=== PATIENT | male | born 1975 | race Caucasian/White ===

== ENCOUNTER 2016-07-13 18:09 | Emergency (ER) | payer SELFPAY ==
--- NOTE | 2016-07-13 18:56 | ED ORDER SUMMARY ---
..... Patient: JOSE CRUZ OrderSheet [facility] VisitID: [id number] [address] [place] [address] 40y, M Registration Date/Time: 07/13/2016 ORDER SHEET Weight: 86.1 kg (estimated) Allergies: No Known Drug Allergy GENERAL ORDERS: MEDICATION ORDERS: Pen-Vee K PO 500 mg (NOW) (18:32 07/13/2016 Matheus RODAS) (18:59 Gaetano Dunn) IV FLUIDS: ORDER SHEET NOTES: [Electronically signed by Karson Moyer R.N. (19:11 07/13/2016)] [Electronically signed by Joshua Crain DO (23:20 07/13/2016)] [Electronically locked/signed by Karson Moyer R.N. (19:11 07/13/2016)]
--- NOTE | 2016-07-13 18:56 | ED CLINICAL REPORT ---
Clinical Report - Physicians/Mid Levels [facility] [address] [place] [address] 07/13/2016 18:11 Patient: JOSE CRUZ Time Seen: 18:15. Arrived- By private vehicle. Historian- patient. HISTORY OF PRESENT ILLNESS Chief Complaint: DENTAL PAIN. This started about 3 days ago and is still present. It was gradual in onset and has been waxing/waning. Pain described as moderate. The patient has had moderate toothache involving a single tooth (left upper molar). Similar symptoms previously: Recent medical care: Not recently seen/assessed. REVIEW OF SYSTEMS No fever, cough, difficulty breathing, nausea or diarrhea. No abdominal pain, difficulty with urination, headache, joint pain or skin rash. No vomiting. PAST HISTORY Hypertension. Hypertension. Type II diabetes mellitus. Medications: None. Allergies: No Known Drug Allergy. SOCIAL HISTORY Smoker- current status unknown. No alcohol use or drug use. ADDITIONAL NOTES The nursing notes have been reviewed. PHYSICAL EXAM Vital Signs: 07/13/2016 18:14 BP: 183/105. HR: 73. RR: 14. O2 saturation: 100%. Temp: 98.2 F. Appearance: Alert. No acute distress. Head: Normal external inspection. Eyes: Pupils equal, round and reactive to light. Conjunctivae and eyelids normal. ENT: Dental decay. Moderate dental tenderness of multiple teeth with gingival tenderness (upper left first molar and second molar). Pharynx normal. Lips normal. Uvula midline. No trismus. Neck: Normal inspection. Trachea midline. No adenopathy. Neck supple. CVS: Normal heart rate and rhythm. Heart sounds normal. Pulses normal. Respiratory: No respiratory distress. Breath sounds normal. Abdomen: Soft and nontender. No organomegaly. Skin: Normal skin color. Normal skin turgor. Extremities: Extremities exhibit normal ROM. Extremities nontender. Neuro: Oriented X 3. No motor deficit. LABS, X-RAYS, AND EKG Bedside Tests: Glucose: moderate hyperglycemia - 380 (performed at bedside). Pulse Oximetry: 07/13/2016 18:14 O2 saturation: 100%. (FIO2 - room air). Interpretation: normal. PROGRESS AND PROCEDURES Course of Care: Pen V 500 mg PO. Pt is known diabetic, but he has not been compliant with his medications (for DM and HTN). No kidney disease. No systemic symptoms / fever. Nothing evident to I&D now. I will resume metformin and pt will monitor his blood sugar at home and follow up closely with his PCP and dentist at [facility] or [facility] and/or return to the ED for new or worsening symptoms or any concerns. Patient/family counseled. Disposition: Discharged. Condition: stable and improved. CLINICAL IMPRESSION Dental caries (localized) Chronic, poorly controlled type 2 diabetes with hyperglycemia. No coma. Essential hypertension. INSTRUCTIONS Do not work for three days. Rest. Drink plenty of fluids. Do not smoke. Seek medical help to quit smoking. No alcohol. Warnings: Further evaluation is necessary. It is very important to follow up with a physician. SEDATIVE MEDICATION: You were given sedative medication during your visit. Do not drive or operate dangerous machinery. CONTROLLED SUBSTANCE WARNINGS. GENERAL WARNINGS: Return or contact your physician immediately if your condition worsens or changes unexpectedly, if not improving as expected, or if other problems arise. Prescription Medications: Penicillin V 500mg: take 1 tab orally every 6 hours for 10 days. Dispense forty (40). No refill Metformin 500 mg: take 1 orally every 12 hours. Dispense five (5). No refills. OTC Medications: Acetaminophen (available over the counter): take according to label instructions. Motrin (available over the counter): take according to label instructions. Follow-up: Follow up with a dentist and an oral surgeon PLEASE SEE THE DENTAL REFERRAL LIST. Call for the next available appointment. Screening today revealed the patient's blood pressure to be in the hypertensive range. The patient should follow up with a primary care provider for blood pressure management. Follow-up with: [facility], Family [facility], , [address] [place] [address] Follow up in two days. Follow-up with: [facility], , , [address] [place] [address], , Bharat, ; [facility], , , [address], [place] [phone] Follow up in two days. (Electronically signed by Joshua Crain DO 07/13/2016 23:20)
--- NOTE | 2016-07-13 18:56 | ED NURSING NOTES ---
Clinical Report - Nurses [facility] [address] [place] [address] 07/13/2016 18:11 Patient: JOSE CRUZ TRIAGE Triage time 18:16. Acuity: LEVEL 4. Chief Complaint: RIGHT UPPER TOOTHACHE. --18:23 Karson Moyer R.N. 18:14 07/13/16. BP: 183/105. HR: 73. RR: 14. O2 saturation: 100%. Temp: 98.2 F. Pain level now 12/24. --18:23 Karson Moyer R.N. Weight: 86.1 kg estimated. Height/Length: 67 inches Estimated. BMI: 29.8. --18:22 Karson Moyer R.N. Medications None. --18:20 Karson Moyer R.N. Allergies No Known Drug Allergy. --18:21 Karson Moyer R.N. History Arrived by private vehicle. Historian: patient. Accompanied by friend. ( Pt is slurring his words and appears very sleepy. The friend stated the pt has not been sleeping well due to the dental pain. Dental pain has been going on for 2 months. Pt is able to answer questions, but is very drowsy.). 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 SOCIAL HX: Current every day heavy tobacco smoker (cigarette)- 1 pack per day (1 /2). No alcohol use or drug use. --18:23 Karson Moyer R.N. PROBLEMS: Hypertension. Diabetes Mellitus. --18:22 Karson Moyer R.N. Interventions ID band on patient. To treatment room. --18:23 Karson Moyer R.N. PHYSICAL ASSESSMENT ( Pt appears very drowsy and slurred speech.). GENERAL / NEURO / PSYCH: Oriented X 4. Appears in no acute distress. The patient is disoriented to time. HEENT: Pupils equal, round and reactive to light. Pharynx within normal limits. Voice within normal limits. Mouth within normal limits upon inspection. No dental injury noted. ( Upper left side is hurting.). Mucous membranes are pink. RESPIRATORY: Respirations not labored. CVS: Capillary refill less than 2 seconds. SKIN: Skin is warm and dry. Normal skin turgor. --18:24 Karson Moyer R.N. NURSING PROGRESS NOTES Two patient identifiers checked. Call light placed in reach. Side rails up. Bed placed in lowest position. Brakes of bed on. --18:24 Karson Moyer R.N. Point of care testing: performed by tech. Glucose: 380. Result shown to the RN. Orders were not received. --18:29 Karson Moyer R.N. 18:59 07/13/2016 PEN-VEE K (Penicillin V Potassium) PO 500 mg given. Allergies verified and confirmed 5 rights. --18:59 Karson Moyer R.N. DISPOSITION / DISCHARGE Departure time: 19:11. Condition at departure: improved. ( Pt was more awake and able to ambulate without assistance to the lobby. GF was given the paperwork. Pt was given the dental list and was told he needs to follow up with a PCP and was given 3 referrals for a pcp. Pt was informed the urgent need to follow up for his diabetes.). Reviewed medication(s) side effects, precautions, dosing and course information. Prescription(s) given to the patient (metformen antiboitic). Patient verbalized understanding. Written instructions provided in [place]ese. The patient was discharged by the physician. He was discharged home and accompanied by burial vault deliverer and installer. He left the Emergency Department ambulatory and via private vehicle. Holistic Nutritionist driving. --19:11 Karson Moyer R.N. Locked/Released at 07/13/2016 19:11 by Karson Moyer R.N.
--- NOTE | 2016-07-13 18:56 | ED NURSING NOTES ---
Clinical Report - Nurses [facility] [address] [place] [address] 07/13/2016 18:11 Patient: JOSE CRUZ TRIAGE Triage time 18:16. Acuity: LEVEL 4. Chief Complaint: RIGHT UPPER TOOTHACHE. --18:23 Karson Moyer R.N. 18:14 07/13/16. BP: 183/105. HR: 73. RR: 14. O2 saturation: 100%. Temp: 98.2 F. Pain level now 12/24. --18:23 Karson Moyer R.N. Weight: 86.1 kg estimated. Height/Length: 67 inches Estimated. BMI: 29.8. --18:22 Karson Moyer R.N. Medications None. --18:20 Karson Moyer R.N. Allergies No Known Drug Allergy. --18:21 Karson Moyer R.N. History Arrived by private vehicle. Historian: patient. Accompanied by friend. ( Pt is slurring his words and appears very sleepy. The friend stated the pt has not been sleeping well due to the dental pain. Dental pain has been going on for 2 months. Pt is able to answer questions, but is very drowsy.). 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 SOCIAL HX: Current every day heavy tobacco smoker (cigarette)- 1 pack per day (1 /2). No alcohol use or drug use. --18:23 Karson Moyer R.N. PROBLEMS: Hypertension. Diabetes Mellitus. --18:22 Karson Moyer R.N. Interventions ID band on patient. To treatment room. --18:23 Karson Moyer R.N. PHYSICAL ASSESSMENT ( Pt appears very drowsy and slurred speech.). GENERAL / NEURO / PSYCH: Oriented X 4. Appears in no acute distress. The patient is disoriented to time. HEENT: Pupils equal, round and reactive to light. Pharynx within normal limits. Voice within normal limits. Mouth within normal limits upon inspection. No dental injury noted. ( Upper left side is hurting.). Mucous membranes are pink. RESPIRATORY: Respirations not labored. CVS: Capillary refill less than 2 seconds. SKIN: Skin is warm and dry. Normal skin turgor. --18:24 Karson Moyer R.N. NURSING PROGRESS NOTES Two patient identifiers checked. Call light placed in reach. Side rails up. Bed placed in lowest position. Brakes of bed on. --18:24 Karson Moyer R.N. Point of care testing: performed by tech. Glucose: 380. Result shown to the RN. Orders were not received. --18:29 Karson Moyer R.N. 18:59 07/13/2016 PEN-VEE K (Penicillin V Potassium) PO 500 mg given. Allergies verified and confirmed 5 rights. --18:59 Karson Moyer R.N. DISPOSITION / DISCHARGE Departure time: 19:11. Condition at departure: improved. ( Pt was more awake and able to ambulate without assistance to the lobby. GF was given the paperwork. Pt was given the dental list and was told he needs to follow up with a PCP and was given 3 referrals for a pcp. Pt was informed the urgent need to follow up for his diabetes.). Reviewed medication(s) side effects, precautions, dosing and course information. Prescription(s) given to the patient (metformen antiboitic). Patient verbalized understanding. Written instructions provided in Sri [place]an. The patient was discharged by the physician. He was discharged home and accompanied by site coordinator. He left the Emergency Department ambulatory and via private vehicle. Circulation Tender driving. --19:11 Karson Moyer R.N. Locked/Released at 07/13/2016 19:11 by Karson Moyer R.N.
--- NOTE | 2016-07-13 18:56 | ED ORDER SUMMARY ---
..... Patient: JOSE CRUZ OrderSheet [facility] VisitID: [id number] [address] [place] [address] 40y, M Registration Date/Time: 07/13/2016 ORDER SHEET Weight: 86.1 kg (estimated) Allergies: No Known Drug Allergy GENERAL ORDERS: MEDICATION ORDERS: Pen-Vee K PO 500 mg (NOW) (18:32 07/13/2016 Matheus RODAS) (18:59 Gaetano Dunn) IV FLUIDS: ORDER SHEET NOTES: [Electronically signed by Karson Moyer R.N. (19:11 07/13/2016)] [Electronically signed by Joshua Crain DO (23:20 07/13/2016)] [Electronically locked/signed by Karson Moyer R.N. (19:11 07/13/2016)]
--- NOTE | 2016-07-13 18:56 | ED CLINICAL REPORT ---
Clinical Report - Physicians/Mid Levels [facility] [address] [place] [place] [address] 07/13/2016 18:11 Patient: JOSE CRUZ Time Seen: 18:15. Arrived- By private vehicle. Historian- patient. HISTORY OF PRESENT ILLNESS Chief Complaint: DENTAL PAIN. This started about 3 days ago and is still present. It was gradual in onset and has been waxing/waning. Pain described as moderate. The patient has had moderate toothache involving a single tooth (left upper molar). Similar symptoms previously: Recent medical care: Not recently seen/assessed. REVIEW OF SYSTEMS No fever, cough, difficulty breathing, nausea or diarrhea. No abdominal pain, difficulty with urination, headache, joint pain or skin rash. No vomiting. PAST HISTORY Hypertension. Hypertension. Type II diabetes mellitus. Medications: None. Allergies: No Known Drug Allergy. SOCIAL HISTORY Smoker- current status unknown. No alcohol use or drug use. ADDITIONAL NOTES The nursing notes have been reviewed. PHYSICAL EXAM Vital Signs: 07/13/2016 18:14 BP: 183/105. HR: 73. RR: 14. O2 saturation: 100%. Temp: 98.2 F. Appearance: Alert. No acute distress. Head: Normal external inspection. Eyes: Pupils equal, round and reactive to light. Conjunctivae and eyelids normal. ENT: Dental decay. Moderate dental tenderness of multiple teeth with gingival tenderness (upper left first molar and second molar). Pharynx normal. Lips normal. Uvula midline. No trismus. Neck: Normal inspection. Trachea midline. No adenopathy. Neck supple. CVS: Normal heart rate and rhythm. Heart sounds normal. Pulses normal. Respiratory: No respiratory distress. Breath sounds normal. Abdomen: Soft and nontender. No organomegaly. Skin: Normal skin color. Normal skin turgor. Extremities: Extremities exhibit normal ROM. Extremities nontender. Neuro: Oriented X 3. No motor deficit. LABS, X-RAYS, AND EKG Bedside Tests: Glucose: moderate hyperglycemia - 380 (performed at bedside). Pulse Oximetry: 07/13/2016 18:14 O2 saturation: 100%. (FIO2 - room air). Interpretation: normal. PROGRESS AND PROCEDURES Course of Care: Pen V 500 mg PO. Pt is known diabetic, but he has not been compliant with his medications (for DM and HTN). No kidney disease. No systemic symptoms / fever. Nothing evident to I&D now. I will resume metformin and pt will monitor his blood sugar at home and follow up closely with his PCP and dentist at [facility] or [facility] and/or return to the ED for new or worsening symptoms or any concerns. Patient/family counseled. Disposition: Discharged. Condition: stable and improved. CLINICAL IMPRESSION Dental caries (localized) Chronic, poorly controlled type 2 diabetes with hyperglycemia. No coma. Essential hypertension. INSTRUCTIONS Do not work for three days. Rest. Drink plenty of fluids. Do not smoke. Seek medical help to quit smoking. No alcohol. Warnings: Further evaluation is necessary. It is very important to follow up with a physician. SEDATIVE MEDICATION: You were given sedative medication during your visit. Do not drive or operate dangerous machinery. CONTROLLED SUBSTANCE WARNINGS. GENERAL WARNINGS: Return or contact your physician immediately if your condition worsens or changes unexpectedly, if not improving as expected, or if other problems arise. Prescription Medications: Penicillin V 500mg: take 1 tab orally every 6 hours for 10 days. Dispense forty (40). No refill Metformin 500 mg: take 1 orally every 12 hours. Dispense five (5). No refills. OTC Medications: Acetaminophen (available over the counter): take according to label instructions. Motrin (available over the counter): take according to label instructions. Follow-up: Follow up with a dentist and an oral surgeon PLEASE SEE THE DENTAL REFERRAL LIST. Call for the next available appointment. Screening today revealed the patient's blood pressure to be in the hypertensive range. The patient should follow up with a primary care provider for blood pressure management. Follow-up with: [facility], Family [facility], , [address] [place] [address] Follow up in two days. Follow-up with: [facility], , , [address] [place] [address], , Bharat, ; [facility], , , [address], [place] [phone] Follow up in two days. (Electronically signed by Joshua Crain DO 07/13/2016 23:20)
--- NOTE | 2016-07-13 23:20 | ED MED RECONCILIATION SUMMARY ---
Patient: JOSE CRUZ Medication Reconciliation Report [facility] VisitID: [id number] [place] [address] 40y, M Registration Date/Time: 07/13/2016 Weight: 86.1 kg Height/Length: 67 in. BMI: 29.8 ALLERGIES: No Known Drug Allergy The patient's Home Medications are listed below: NONE. The source(s) of the original Home Medication information: Not obtained. The following Medications were given to the patient in the Emergency Department: PEN-VEE K [PO] PO 500 mg, administered: 07/13/2016 6:59:00 PM The following Medications were prescribed to the patient: Acetaminophen (available over the counter): take according to label instructions. -- Joshua Crain DO Motrin (available over the counter): take according to label instructions. -- Joshua Crain DO Penicillin V 500mg: take 1 tab orally every 6 hours for 10 days. Dispense forty (40). No refill -- Joshua Crain DO Metformin 500 mg: take 1 orally every 12 hours. Dispense five (5). No refills. -- Joshua Crain DO
--- NOTE | 2016-07-13 23:20 | ED MAR SUMMARY ---
..... Medication Administration Record [facility] [address] [place] [address] Patient: JOSE CRUZ Visit ID: [id number] 40y, M Weight: 86.1 kg Height/Length: 67 in BMI: 29.8 ALLERGIES: No Known Drug Allergy Given 18:59 07/13/2016 Karson Moyer R.N. Medication Administered: PEN-VEE K [PO] (PENICILLIN V POTASSIUM), Dose: 500 mg PO. Medication Ordered: Pen-Vee K PO 500 mg (NOW).
--- NOTE | 2016-07-13 23:20 | ED DISCHARGE INSTRUCTIONS ---
Patient: JOSE CRUZ General Instructions [facility] VisitID: [id number] [address] [place] [address] 40y, M Registration Date/Time: 07/13/2016 Dental caries (localized) Chronic, poorly controlled type 2 diabetes with hyperglycemia. No coma. Essential hypertension. INSTRUCTIONS Do not work for three days. Rest. Drink plenty of fluids. Do not smoke. Seek medical help to quit smoking. No alcohol. Warnings: Further evaluation is necessary. It is very important to follow up with a physician. SEDATIVE MEDICATION: You were given sedative medication during your visit. Do not drive or operate dangerous machinery. CONTROLLED SUBSTANCE WARNINGS. GENERAL WARNINGS: Return or contact your physician immediately if your condition worsens or changes unexpectedly, if not improving as expected, or if other problems arise. Prescription Medications: Penicillin V 500mg: take 1 tab orally every 6 hours for 10 days. Dispense forty (40). No refill Metformin 500 mg: take 1 orally every 12 hours. Dispense five (5). No refills. OTC Medications: Acetaminophen (available over the counter): take according to label instructions. Motrin (available over the counter): take according to label instructions. Follow-up: Follow up with a dentist and an oral surgeon PLEASE SEE THE DENTAL REFERRAL LIST. Call for the next available appointment. Screening today revealed the patient's blood pressure to be in the hypertensive range. The patient should follow up with a primary care provider for blood pressure management. Follow-up with: [facility], [facility], , [address] [place] [address] Follow up in two days. Follow-up with: [facility], , , [address] [place] [address], , [place], ; [facility], , , [address], [facility], [address] Follow up in two days. ADDITIONAL INFORMATION Dental Cavity A dental cavity is a pit or crater in the enamel surface of the tooth. This exposes the sensitive inner layer of the tooth and causes pain. If untreated, the cavity will get bigger and may cause an infection or abscess in the root of the tooth. An infection in the tooth is a much more serious problem and may require a root canal or removal of the entire tooth. The tooth pain may be made worse by drinking hot or cold fluids. It may spread from the tooth to the ear or jaw on the same side. Home Care: Avoid hot and cold foods, and liquids since your tooth may be sensitive to temperature changes. If your tooth is chipped or cracked, or if there is a large open cavity, apply OIL OF CLOVES (available rzrq-mak-tnhnklo in drug stores) directly to the tooth to reduce pain. Some pharmacies carry an wsmr-uhs-iogdcrl "toothache kit." This contains oil of cloves and a paste, which can be applied over the exposed tooth to decrease sensitivity. An ice pack on your jaw over the sore area may help to reduce pain. You may use acetaminophen (Tylenol) or ibuprofen (Motrin, Advil) to control pain, unless another pain medicine was prescribed. [ NOTE: If you have liver disease or ever had a stomach ulcer, talk with your doctor before using these medicines.] If you have signs of an infection, an antibiotic will be given. Take it as directed. Follow-Up with your dentist as directed. Although your pain may go away with the treatment given, only a dentist can fully evaluate and treat this problem to prevent further tooth damage. Get Prompt Medical Attention if any of the following occur: Redness or swelling of the face Pain worsens or spreads to the neck Fever over 100.5 F (38C) Unusual drowsiness; headache or stiff neck; weakness or fainting Pus drains from the tooth or gum Difficulty swallowing or breathing Dental Pain A crack or cavity in the tooth, which exposes the sensitive inner area of the tooth can cause tooth pain. An infection in the gum or the root of the tooth can cause pain and swelling. The pain is often made worse by drinking hot or cold fluids, or biting on hard foods. Pain may spread from the tooth to the ear or jaw on the same side. Home Care: Avoid hot and cold foods and liquids since your tooth may be sensitive to temperature changes. If your tooth is chipped or cracked, or if there is a large open cavity, apply OIL OF CLOVES (available zbno-ldz-mwvtltg in drug stores) directly to the tooth to reduce pain. Some pharmacies carry an hper-gvg-oxballo "toothache kit." This contains a paste, which can be applied over the exposed tooth to decrease sensitivity. A cold pack on your jaw over the sore area may help reduce pain. You may use acetaminophen (Tylenol) or ibuprofen (Motrin, Advil) to control pain, unless another medicine was prescribed. [ NOTE: If you have chronic liver or kidney disease or ever had a stomach ulcer or GI bleeding, talk with your doctor before using these medicines.] If you have signs of an infection, an antibiotic will be given. Take it as directed. Follow-Up as directed with a dentist. Your pain may go away with the treatment given. However, only a dentist can fully evaluate and treat the cause and prevent the pain from coming back again. TOOTHACHE IS A SIGN OF DISEASE IN YOUR TOOTH AND SHOULD BE EXAMINED AND TREATED BY A DENTIST. Get Prompt Medical Attention if any of the following occur: Your face becomes swollen or red Pain worsens or spreads to the neck Fever over 100.4 F (38.0 C) Unusual drowsiness; headache or stiff neck; weakness or fainting Pus drains from the tooth Difficulty swallowing or breathing Diabetes with High Blood Sugar You have been treated for high blood sugar (hyperglycemia). This may be becauseof an infection or other illness;eating too many sweets or starches ; not taking enough insulin. Home care High blood sugar may cause symptoms that you can learn to recognize, such as these: If you feel like your blood sugar may be too high, measure it using a blood or urine test. If it is above your usual range, use the "sliding scale"rRegular insulin dose your doctor gave you to correct this. If no "sliding scale" orders were given, contact your doctor for further advice. If your blood sugar is over 300, and you can't reach your doctor, go to the hospital emergency room. Monitor and write down your blood sugars - and insulin dose, if you take insulin - atleast twice a day. Do this before breakfast and before dinner. Do this for the next 3 to 5 days. Follow-up care Follow up with your health care provderduring the next week to review your blood sugar records. You will find out if you need to adjust your dose of insulin or other medicine for blood sugar. When to seek medical care Get prompt medical attention if either of these occur: High blood sugar.Symptoms are frequent urination, feeling dizzy, thirst, headache, nausea or vomiting, abdominal pain, and drowsiness or loss of consciousness. Low blood sugar. Symptoms are fatigue, headache, shakes, excess sweating, hunger, anxiety, reduced vision, drowsiness, weakness, confusion or loss of consciousness, and seizure. High Blood Pressure --Established High Blood Pressure (Hypertension) is a chronic disease. The cause is unknown in most cases. It can usually be controlled with lifestyle changes and/or medicines. Symptoms of high blood pressure may include headache, dizziness, visual changes, chest pain and shortness of breath. Sometimes it causes no symptoms at all. However, even if there are no symptoms, untreated high blood pressure increases the risk of heart attack, also known as acute myocardial infarction, or AMI, and stroke. It is a serious health risk and should not be ignored. A normal blood pressure is 120/80 or less. The first (top) number is the "systolic" pressure. The second (bottom) number is the "diastolic" pressure. Hypertension exists when either the top number is 140 or higher, OR the bottom number is 90 or higher on repeated measurements. Home Care: All patients with high blood pressure should do the following to lower their pressure. If you are on medicines, then these methods may reduce or eliminate your need for medicines in the future. Begin a weight loss program if you are overweight. Reduce your salt intake. Avoid high salt foods (olives, pickles, smoked meats, salted potato chips, etc.). Do not add salt to your food at the table. Use only small amounts of salt when cooking. Begin an exercise program. Discuss with your doctor what type of exercise program would be best for you. It doesn't have to be difficult. Even brisk walking for 20 minutes three times a week is a good form of exercise. Avoid medicines which contain heart stimulants. This includes many cold and sinus decongestant pills and sprays as well as diet pills. Check the warnings about hypertension on the label. Stimulants such as amphetamine or cocaine could be lethal for someone with hypertension. Never take these. Limit your caffeine intake or switch to caffeine-free products. Stop smoking. If you are a long-time smoker, this can be hard. Enroll in a stop-smoking program to improve your chance of success. Learning how to handle stress better is an important part of any program to lower blood pressure. Learn about relaxation methods such as meditation, yoga or biofeedback. If medicines were prescribed, take them exactly as directed. Missing doses may cause your blood pressure get out of control. Consider buying an automatic blood pressure machine (available at most pharmacies). Use this to monitor your blood pressure at home and report the results to your doctor. Follow Up: Regular visits to your own physician for blood pressure checks and medicine adjustment is an important part of your care. Make a follow-up appointment as directed by our staff. Get Prompt Medical Attention if any of the following occur: Chest pain or shortness of breath Severe headache Throbbing or rushing sound in the ears Nosebleed Sudden severe abdominal pain Extreme drowsiness, confusion or fainting Dizziness or vertigo (dizziness with spinning sensation) Weakness of an arm or leg or one side of the face Difficulty with speech or vision How To Quit Smoking Smoking is one of the hardest habits to break. About half of all those who have ever smoked have been able to quit, and most of those (about 70%) who still smoke want to quit. Here are some of the best ways to stop smoking. Keep Trying: It takes most smokers about 8 tries before they are finally able to fully quit. So, the more often you try and fail, the better your chance of quitting the next time! So, don't give up! Go Cold [place]: Most ex-smokers quit cold turkey. Trying to cut back gradually doesn't seem to work as well, perhaps because it continues the smoking habit. Also, it is possible to fool yourself by inhaling more while smoking fewer cigarettes. This results in the same amount of nicotine in your body! Get Support: Support programs can make an important difference, especially for the heavy smoker. These groups offer lectures, methods to change your behavior and peer support. Call the free national Quitline for more information. 040-ZYET-EVC (788-981-2454). Low-cost or free programs are offered by many hospitals, local chapters of the [place] [employer] (177-685-9981) and the [place] [employer] (776-292-4119). Support at home is important too. Non-smokers can help by offering praise and encouragement. If the smoker fails to quit, encourage them to try again! Hyai-Eas-Bvxkaqo Medicines: For those who can't quit on their own, Nicotine Replacement Therapy (NRT) may make quitting much easier. Certain aids such as the nicotine patch, gum and lozenge are available without a prescription. However, it is best to use these under the guidance of your doctor. The skin patch provides a steady supply of nicotine to the body. Nicotine gum and lozenge gives temporary bursts of low levels of nicotine. Both methods take the edge off the craving for cigarettes. WARNING: If you feel symptoms of nicotine overdose, such as nausea, vomiting, dizziness, weakness, or fast heartbeat, stop using these and see your doctor. Prescription Medicines: After evaluating your smoking patterns and prior attempts at quitting, your doctor may offer a prescription medicine such as bupropion (Zyban, Wellbutrin), varenicline (Chantix, Champix), a niocotine inhaler or nasal spray. Each has its unique advantage and side effects which your doctor can review with you. Health Benefits Of Quitting: The benefits of quitting start right away and keep improving the longer you go without smokin minutes: blood pressure and pulse return to normal 8 hours: oxygen levels return to normal 2 days: ability to smell and taste begins to improve as damaged nerves start to regrow 2-3 weeks: circulation and lung function improves 1-9 months: decreased cough, congestion and shortness of breath; less tired 1 year: risk of heart attack decreases by half 5 years: risk of lung cancer decreases by half; risk of stroke becomes the same as a non-smoker For information about how to quit smoking, visit the following links: National [employer] , Clearing the Air, Quit Smoking Today - an online booklet. http://www.smokefree.gov/pubs/clearing_the_air.pdf Smokefree.gov http://smokefree.gov/ QuitNet http://www.quitnet.com/ Penicillin V Potassium Oral tablet What is this medicine? PENICILLIN V (pen i SILL in V) is a penicillin antibiotic. It is used to treat certain kinds of bacterial infections. It will not work for colds, flu, or other viral infections. How should I use this medicine? Take this medicine by mouth with a full glass of water. Follow the directions on the prescription label. Take your medicine at regular intervals. Do not take your medicine more often than directed. Take all of your medicine as directed even if you think your are better. Do not skip doses or stop your medicine early. Talk to your inspector bullet slugs regarding the use of this medicine in children. While this drug may be prescribed for selected conditions, precautions do apply. What side effects may I notice from receiving this medicine? Side effects that you should report to your doctor or health manager respiratory care as soon as possible: allergic reactions like skin rash or hives, swelling of the face, lips, or tongue breathing problems fever new symptoms of infection redness, blistering, peeling or loosening of the skin, including inside the mouth unusually weak or tired Side effects that usually do not require medical attention (report to your doctor or health manager respiratory care if they continue or are bothersome): diarrhea headache nausea, vomiting sore mouth or tongue stomach upset What may interact with this medicine? control pills methotrexate other antibiotics probenecid some vaccines What if I miss a dose? If you miss a dose, take it as soon as you can. If it is almost time for your next dose, take only that dose. Do not take double or extra doses. Where should I keep my medicine? Keep out of the reach of children. Store at room temperature between 15 and 30 degrees C (59 and 86 degrees F). Keep container tightly closed. Throw away any unused medicine after the expiration date. What should I tell my health care provider before I take this medicine? They need to know if you have any of these conditions: asthma bowel disease, like colitis eczema kidney disease an unusual or allergic reaction to penicillin, cephalosporins, other antibiotics or medicines, foods, tartrazine or other dyes, or preservatives or trying to get breast-feeding What should I watch for while using this medicine? Tell your doctor or health manager respiratory care if your symptoms do not improve. Do not treat diarrhea with over the counter products. Contact your doctor if you have diarrhea that lasts more than 2 days or if it is severe and watery. If you have diabetes, you may get a false-positive result for sugar in your urine. Check with your doctor or health manager respiratory care. control pills may not work properly while you are taking this medicine. Talk to your doctor about using an extra method of control. Acetaminophen Oral tablet What is this medicine? ACETAMINOPHEN (a set a STEVEN valentino fen) is a pain reliever. It is used to treat mild pain and fever. How should I use this medicine? Take this medicine by mouth with a glass of water. Follow the directions on the package or prescription label. Take your medicine at regular intervals. Do not take your medicine more often than directed. Talk to your inspector bullet slugs regarding the use of this medicine in children. While this drug may be prescribed for children as young as 6 years of age for selected conditions, precautions do apply. What side effects may I notice from receiving this medicine? Side effects that you should report to your doctor or health manager respiratory care as soon as possible: allergic reactions like skin rash, itching or hives, swelling of the face, lips, or tongue breathing problems fever or sore throat redness, blistering, peeling or loosening of the skin, including inside the mouth trouble passing urine or change in the amount of urine unusual bleeding or bruising unusually weak or tired yellowing of the eyes or skin Side effects that usually do not require medical attention (report to your doctor or health manager respiratory care if they continue or are bothersome): headache nausea, stomach upset What may interact with this medicine? alcohol imatinib isoniazid other medicines with acetaminophen What if I miss a dose? If you miss a dose, take it as soon as you can. If it is almost time for your next dose, take only that dose. Do not take double or extra doses. Where should I keep my medicine? Keep out of reach of children. Store at room temperature between 20 and 25 degrees C (68 and 77 degrees F). Protect from moisture and heat. Throw away any unused medicine after the expiration date. What should I tell my health care provider before I take this medicine? They need to know if you have any of these conditions: if you frequently drink alcohol containing drinks liver disease an unusual or allergic reaction to acetaminophen, other medicines, foods, dyes or preservatives or trying to get breast-feeding What should I watch for while using this medicine? Tell your doctor or health manager respiratory care if the pain lasts more than 10 days (5 days for children), if it gets worse, or if there is a new or different kind of pain. Also, check with your doctor if a fever lasts for more than 3 days. Do not take other medicines that contain acetaminophen with this medicine. Always read labels carefully. If you have questions, ask your doctor or pharmacist. If you take too much acetaminophen get medical help right away. Too much acetaminophen can be very dangerous and cause liver damage. Even if you do not have symptoms, it is important to get help right away. Ibuprofen Oral tablet What is this medicine? IBUPROFEN (eye BYOO proe fen) is a non-steroidal anti-inflammatory drug (NSAID). It is used for dental pain, fever, headaches or migraines, osteoarthritis, rheumatoid arthritis, or painful monthly periods. It can also relieve minor aches and pains caused by a cold, flu, or sore throat. How should I use this medicine? Take this medicine by mouth with a glass of water. Follow the directions on the prescription label. Take this medicine with food if your stomach gets upset. Try to not lie down for at least 10 minutes after you take the medicine. Take your medicine at regular intervals. Do not take your medicine more often than directed. A special MedGuide will be given to you by the pharmacist with each prescription and refill. Be sure to read this information carefully each time. Talk to your inspector bullet slugs regarding the use of this medicine in children. Special care may be needed. What side effects may I notice from receiving this medicine? Side effects that you should report to your doctor or health manager respiratory care as soon as possible: allergic reactions like skin rash, itching or hives, swelling of the face, lips, or tongue black or bloody stools, blood in the urine or in vomit breathing problems changes in vision chest pain general ill feeling or flu-like symptoms nausea or vomiting redness, blistering, peeling or loosening of the skin, including inside the mouth slurred speech or weakness on one side of the body stomach pain unexplained weight gain or swelling unusually weak or tired yellowing of eyes or skin Side effects that usually do not require medical attention (report to your doctor or health manager respiratory care if they continue or are bothersome): constipation or diarrhea dizziness gas or heartburn stomach upset What may interact with this medicine? Do not take this medicine with any of the following medications: cidofovir ketorolac methotrexate pemetrexed This medicine may also interact with the following medications: alcohol aspirin diuretics lithium other drugs for inflammation like prednisone warfarin What if I miss a dose? If you miss a dose, take it as soon as you can. If it is almost time for your next dose, take only that dose. Do not take double or extra doses. Where should I keep my medicine? Keep out of the reach of children. Store at room temperature between 15 and 30 degrees C (59 and 86 degrees F). Keep container tightly closed. Throw away any unused medicine after the expiration date. What should I tell my health care provider before I take this medicine? They need to know if you have any of these conditions: asthma cigarette smoker drink more than 3 alcohol containing drinks a day heart disease or circulation problems such as heart failure or leg edema (fluid retention) high blood pressure kidney disease liver disease stomach bleeding or ulcers an unusual or allergic reaction to ibuprofen, aspirin, other NSAIDS, other medicines, foods, dyes, or preservatives or trying to get breast-feeding What should I watch for while using this medicine? Tell your doctor or healthcare professional if your symptoms do not start to get better or if they get worse. This medicine does not prevent heart attack or stroke. In fact, this medicine may increase the chance of a heart attack or stroke. The chance may increase with longer use of this medicine and in people who have heart disease. If you take aspirin to prevent heart attack or stroke, talk with your doctor or health manager respiratory care. Do not take other medicines that contain aspirin, ibuprofen, or naproxen with this medicine. Side effects such as stomach upset, nausea, or ulcers may be more likely to occur. Many medicines available without a prescription should not be taken with this medicine. This medicine can cause ulcers and bleeding in the stomach and intestines at any time during treatment. Ulcers and bleeding can happen without warning symptoms and can cause . To reduce your risk, do not smoke cigarettes or drink alcohol while you are taking this medicine. You may get drowsy or dizzy. Do not drive, use machinery, or do anything that needs mental alertness until you know how this medicine affects you. Do not stand or sit up quickly, especially if you are an older patient. This reduces the risk of dizzy or fainting spells. This medicine can cause you to bleed more easily. Try to avoid damage to your teeth and gums when you brush or floss your teeth. You have been given the following additional information: Dental Cavity Dental Pain Diabetic Hyperglycemia Hypertension, Established Smoking Cessation Penicillin V Potassium Oral tablet Acetaminophen Oral tablet Ibuprofen Oral tablet Do not work for three days. Rest. (Electronically signed by Joshua Crain DO 07/13/2016 23:20)
--- NOTE | 2016-07-13 23:20 | ED DISCHARGE INSTRUCTIONS ---
Patient: JOSE CRUZ General Instructions [facility] VisitID: [id number] [address] [place] [address] 40y, M Registration Date/Time: 07/13/2016 Dental caries (localized) Chronic, poorly controlled type 2 diabetes with hyperglycemia. No coma. Essential hypertension. INSTRUCTIONS Do not work for three days. Rest. Drink plenty of fluids. Do not smoke. Seek medical help to quit smoking. No alcohol. Warnings: Further evaluation is necessary. It is very important to follow up with a physician. SEDATIVE MEDICATION: You were given sedative medication during your visit. Do not drive or operate dangerous machinery. CONTROLLED SUBSTANCE WARNINGS. GENERAL WARNINGS: Return or contact your physician immediately if your condition worsens or changes unexpectedly, if not improving as expected, or if other problems arise. Prescription Medications: Penicillin V 500mg: take 1 tab orally every 6 hours for 10 days. Dispense forty (40). No refill Metformin 500 mg: take 1 orally every 12 hours. Dispense five (5). No refills. OTC Medications: Acetaminophen (available over the counter): take according to label instructions. Motrin (available over the counter): take according to label instructions. Follow-up: Follow up with a dentist and an oral surgeon PLEASE SEE THE DENTAL REFERRAL LIST. Call for the next available appointment. Screening today revealed the patient's blood pressure to be in the hypertensive range. The patient should follow up with a primary care provider for blood pressure management. Follow-up with: [facility], [facility], , [address] [place] [address] Follow up in two days. Follow-up with: [facility], , , [address] [place] [address], , [place], ; [facility], , , [address], [facility], [address] Follow up in two days. ADDITIONAL INFORMATION Dental Cavity A dental cavity is a pit or crater in the enamel surface of the tooth. This exposes the sensitive inner layer of the tooth and causes pain. If untreated, the cavity will get bigger and may cause an infection or abscess in the root of the tooth. An infection in the tooth is a much more serious problem and may require a root canal or removal of the entire tooth. The tooth pain may be made worse by drinking hot or cold fluids. It may spread from the tooth to the ear or jaw on the same side. Home Care: Avoid hot and cold foods, and liquids since your tooth may be sensitive to temperature changes. If your tooth is chipped or cracked, or if there is a large open cavity, apply OIL OF CLOVES (available jpag-lyl-bponzkq in drug stores) directly to the tooth to reduce pain. Some pharmacies carry an lrjr-bpx-wlsjqfo "toothache kit." This contains oil of cloves and a paste, which can be applied over the exposed tooth to decrease sensitivity. An ice pack on your jaw over the sore area may help to reduce pain. You may use acetaminophen (Tylenol) or ibuprofen (Motrin, Advil) to control pain, unless another pain medicine was prescribed. [ NOTE: If you have liver disease or ever had a stomach ulcer, talk with your doctor before using these medicines.] If you have signs of an infection, an antibiotic will be given. Take it as directed. Follow-Up with your dentist as directed. Although your pain may go away with the treatment given, only a dentist can fully evaluate and treat this problem to prevent further tooth damage. Get Prompt Medical Attention if any of the following occur: Redness or swelling of the face Pain worsens or spreads to the neck Fever over 100.5 F (38C) Unusual drowsiness; headache or stiff neck; weakness or fainting Pus drains from the tooth or gum Difficulty swallowing or breathing Dental Pain A crack or cavity in the tooth, which exposes the sensitive inner area of the tooth can cause tooth pain. An infection in the gum or the root of the tooth can cause pain and swelling. The pain is often made worse by drinking hot or cold fluids, or biting on hard foods. Pain may spread from the tooth to the ear or jaw on the same side. Home Care: Avoid hot and cold foods and liquids since your tooth may be sensitive to temperature changes. If your tooth is chipped or cracked, or if there is a large open cavity, apply OIL OF CLOVES (available wjgb-crr-pwevlge in drug stores) directly to the tooth to reduce pain. Some pharmacies carry an vbqc-jia-cqasxfk "toothache kit." This contains a paste, which can be applied over the exposed tooth to decrease sensitivity. A cold pack on your jaw over the sore area may help reduce pain. You may use acetaminophen (Tylenol) or ibuprofen (Motrin, Advil) to control pain, unless another medicine was prescribed. [ NOTE: If you have chronic liver or kidney disease or ever had a stomach ulcer or GI bleeding, talk with your doctor before using these medicines.] If you have signs of an infection, an antibiotic will be given. Take it as directed. Follow-Up as directed with a dentist. Your pain may go away with the treatment given. However, only a dentist can fully evaluate and treat the cause and prevent the pain from coming back again. TOOTHACHE IS A SIGN OF DISEASE IN YOUR TOOTH AND SHOULD BE EXAMINED AND TREATED BY A DENTIST. Get Prompt Medical Attention if any of the following occur: Your face becomes swollen or red Pain worsens or spreads to the neck Fever over 100.4 F (38.0 C) Unusual drowsiness; headache or stiff neck; weakness or fainting Pus drains from the tooth Difficulty swallowing or breathing Diabetes with High Blood Sugar You have been treated for high blood sugar (hyperglycemia). This may be becauseof an infection or other illness;eating too many sweets or starches ; not taking enough insulin. Home care High blood sugar may cause symptoms that you can learn to recognize, such as these: If you feel like your blood sugar may be too high, measure it using a blood or urine test. If it is above your usual range, use the "sliding scale"rRegular insulin dose your doctor gave you to correct this. If no "sliding scale" orders were given, contact your doctor for further advice. If your blood sugar is over 300, and you can't reach your doctor, go to the hospital emergency room. Monitor and write down your blood sugars - and insulin dose, if you take insulin - atleast twice a day. Do this before breakfast and before dinner. Do this for the next 3 to 5 days. Follow-up care Follow up with your health care provderduring the next week to review your blood sugar records. You will find out if you need to adjust your dose of insulin or other medicine for blood sugar. When to seek medical care Get prompt medical attention if either of these occur: High blood sugar.Symptoms are frequent urination, feeling dizzy, thirst, headache, nausea or vomiting, abdominal pain, and drowsiness or loss of consciousness. Low blood sugar. Symptoms are fatigue, headache, shakes, excess sweating, hunger, anxiety, reduced vision, drowsiness, weakness, confusion or loss of consciousness, and seizure. High Blood Pressure --Established High Blood Pressure (Hypertension) is a chronic disease. The cause is unknown in most cases. It can usually be controlled with lifestyle changes and/or medicines. Symptoms of high blood pressure may include headache, dizziness, visual changes, chest pain and shortness of breath. Sometimes it causes no symptoms at all. However, even if there are no symptoms, untreated high blood pressure increases the risk of heart attack, also known as acute myocardial infarction, or AMI, and stroke. It is a serious health risk and should not be ignored. A normal blood pressure is 120/80 or less. The first (top) number is the "systolic" pressure. The second (bottom) number is the "diastolic" pressure. Hypertension exists when either the top number is 140 or higher, OR the bottom number is 90 or higher on repeated measurements. Home Care: All patients with high blood pressure should do the following to lower their pressure. If you are on medicines, then these methods may reduce or eliminate your need for medicines in the future. Begin a weight loss program if you are overweight. Reduce your salt intake. Avoid high salt foods (olives, pickles, smoked meats, salted potato chips, etc.). Do not add salt to your food at the table. Use only small amounts of salt when cooking. Begin an exercise program. Discuss with your doctor what type of exercise program would be best for you. It doesn't have to be difficult. Even brisk walking for 20 minutes three times a week is a good form of exercise. Avoid medicines which contain heart stimulants. This includes many cold and sinus decongestant pills and sprays as well as diet pills. Check the warnings about hypertension on the label. Stimulants such as amphetamine or cocaine could be lethal for someone with hypertension. Never take these. Limit your caffeine intake or switch to caffeine-free products. Stop smoking. If you are a long-time smoker, this can be hard. Enroll in a stop-smoking program to improve your chance of success. Learning how to handle stress better is an important part of any program to lower blood pressure. Learn about relaxation methods such as meditation, yoga or biofeedback. If medicines were prescribed, take them exactly as directed. Missing doses may cause your blood pressure get out of control. Consider buying an automatic blood pressure machine (available at most pharmacies). Use this to monitor your blood pressure at home and report the results to your doctor. Follow Up: Regular visits to your own physician for blood pressure checks and medicine adjustment is an important part of your care. Make a follow-up appointment as directed by our staff. Get Prompt Medical Attention if any of the following occur: Chest pain or shortness of breath Severe headache Throbbing or rushing sound in the ears Nosebleed Sudden severe abdominal pain Extreme drowsiness, confusion or fainting Dizziness or vertigo (dizziness with spinning sensation) Weakness of an arm or leg or one side of the face Difficulty with speech or vision How To Quit Smoking Smoking is one of the hardest habits to break. About half of all those who have ever smoked have been able to quit, and most of those (about 70%) who still smoke want to quit. Here are some of the best ways to stop smoking. Keep Trying: It takes most smokers about 8 tries before they are finally able to fully quit. So, the more often you try and fail, the better your chance of quitting the next time! So, don't give up! Go Cold [place]: Most ex-smokers quit cold turkey. Trying to cut back gradually doesn't seem to work as well, perhaps because it continues the smoking habit. Also, it is possible to fool yourself by inhaling more while smoking fewer cigarettes. This results in the same amount of nicotine in your body! Get Support: Support programs can make an important difference, especially for the heavy smoker. These groups offer lectures, methods to change your behavior and peer support. Call the free national Quitline for more information. 928-TLZQ-HYL (502-931-3401). Low-cost or free programs are offered by many hospitals, local chapters of the [place] [employer] (798-393-9887) and the [place] [employer] (336-817-1458). Support at home is important too. Non-smokers can help by offering praise and encouragement. If the smoker fails to quit, encourage them to try again! Bplf-Wzf-Cbbbjpd Medicines: For those who can't quit on their own, Nicotine Replacement Therapy (NRT) may make quitting much easier. Certain aids such as the nicotine patch, gum and lozenge are available without a prescription. However, it is best to use these under the guidance of your doctor. The skin patch provides a steady supply of nicotine to the body. Nicotine gum and lozenge gives temporary bursts of low levels of nicotine. Both methods take the edge off the craving for cigarettes. WARNING: If you feel symptoms of nicotine overdose, such as nausea, vomiting, dizziness, weakness, or fast heartbeat, stop using these and see your doctor. Prescription Medicines: After evaluating your smoking patterns and prior attempts at quitting, your doctor may offer a prescription medicine such as bupropion (Zyban, Wellbutrin), varenicline (Chantix, Champix), a niocotine inhaler or nasal spray. Each has its unique advantage and side effects which your doctor can review with you. Health Benefits Of Quitting: The benefits of quitting start right away and keep improving the longer you go without smokin minutes: blood pressure and pulse return to normal 8 hours: oxygen levels return to normal 2 days: ability to smell and taste begins to improve as damaged nerves start to regrow 2-3 weeks: circulation and lung function improves 1-9 months: decreased cough, congestion and shortness of breath; less tired 1 year: risk of heart attack decreases by half 5 years: risk of lung cancer decreases by half; risk of stroke becomes the same as a non-smoker For information about how to quit smoking, visit the following links: National [employer] , Clearing the Air, Quit Smoking Today - an online booklet. http://www.smokefree.gov/pubs/clearing_the_air.pdf Smokefree.gov http://smokefree.gov/ QuitNet http://www.quitnet.com/ Penicillin V Potassium Oral tablet What is this medicine? PENICILLIN V (pen i SILL in V) is a penicillin antibiotic. It is used to treat certain kinds of bacterial infections. It will not work for colds, flu, or other viral infections. How should I use this medicine? Take this medicine by mouth with a full glass of water. Follow the directions on the prescription label. Take your medicine at regular intervals. Do not take your medicine more often than directed. Take all of your medicine as directed even if you think your are better. Do not skip doses or stop your medicine early. Talk to your creative services producer regarding the use of this medicine in children. While this drug may be prescribed for selected conditions, precautions do apply. What side effects may I notice from receiving this medicine? Side effects that you should report to your doctor or health child day care center worker as soon as possible: allergic reactions like skin rash or hives, swelling of the face, lips, or tongue breathing problems fever new symptoms of infection redness, blistering, peeling or loosening of the skin, including inside the mouth unusually weak or tired Side effects that usually do not require medical attention (report to your doctor or health child day care center worker if they continue or are bothersome): diarrhea headache nausea, vomiting sore mouth or tongue stomach upset What may interact with this medicine? control pills methotrexate other antibiotics probenecid some vaccines What if I miss a dose? If you miss a dose, take it as soon as you can. If it is almost time for your next dose, take only that dose. Do not take double or extra doses. Where should I keep my medicine? Keep out of the reach of children. Store at room temperature between 15 and 30 degrees C (59 and 86 degrees F). Keep container tightly closed. Throw away any unused medicine after the expiration date. What should I tell my health care provider before I take this medicine? They need to know if you have any of these conditions: asthma bowel disease, like colitis eczema kidney disease an unusual or allergic reaction to penicillin, cephalosporins, other antibiotics or medicines, foods, tartrazine or other dyes, or preservatives or trying to get breast-feeding What should I watch for while using this medicine? Tell your doctor or health child day care center worker if your symptoms do not improve. Do not treat diarrhea with over the counter products. Contact your doctor if you have diarrhea that lasts more than 2 days or if it is severe and watery. If you have diabetes, you may get a false-positive result for sugar in your urine. Check with your doctor or health child day care center worker. control pills may not work properly while you are taking this medicine. Talk to your doctor about using an extra method of control. Acetaminophen Oral tablet What is this medicine? ACETAMINOPHEN (a set a STEVEN valentino fen) is a pain reliever. It is used to treat mild pain and fever. How should I use this medicine? Take this medicine by mouth with a glass of water. Follow the directions on the package or prescription label. Take your medicine at regular intervals. Do not take your medicine more often than directed. Talk to your creative services producer regarding the use of this medicine in children. While this drug may be prescribed for children as young as 6 years of age for selected conditions, precautions do apply. What side effects may I notice from receiving this medicine? Side effects that you should report to your doctor or health child day care center worker as soon as possible: allergic reactions like skin rash, itching or hives, swelling of the face, lips, or tongue breathing problems fever or sore throat redness, blistering, peeling or loosening of the skin, including inside the mouth trouble passing urine or change in the amount of urine unusual bleeding or bruising unusually weak or tired yellowing of the eyes or skin Side effects that usually do not require medical attention (report to your doctor or health child day care center worker if they continue or are bothersome): headache nausea, stomach upset What may interact with this medicine? alcohol imatinib isoniazid other medicines with acetaminophen What if I miss a dose? If you miss a dose, take it as soon as you can. If it is almost time for your next dose, take only that dose. Do not take double or extra doses. Where should I keep my medicine? Keep out of reach of children. Store at room temperature between 20 and 25 degrees C (68 and 77 degrees F). Protect from moisture and heat. Throw away any unused medicine after the expiration date. What should I tell my health care provider before I take this medicine? They need to know if you have any of these conditions: if you frequently drink alcohol containing drinks liver disease an unusual or allergic reaction to acetaminophen, other medicines, foods, dyes or preservatives or trying to get breast-feeding What should I watch for while using this medicine? Tell your doctor or health child day care center worker if the pain lasts more than 10 days (5 days for children), if it gets worse, or if there is a new or different kind of pain. Also, check with your doctor if a fever lasts for more than 3 days. Do not take other medicines that contain acetaminophen with this medicine. Always read labels carefully. If you have questions, ask your doctor or pharmacist. If you take too much acetaminophen get medical help right away. Too much acetaminophen can be very dangerous and cause liver damage. Even if you do not have symptoms, it is important to get help right away. Ibuprofen Oral tablet What is this medicine? IBUPROFEN (eye BYOO proe fen) is a non-steroidal anti-inflammatory drug (NSAID). It is used for dental pain, fever, headaches or migraines, osteoarthritis, rheumatoid arthritis, or painful monthly periods. It can also relieve minor aches and pains caused by a cold, flu, or sore throat. How should I use this medicine? Take this medicine by mouth with a glass of water. Follow the directions on the prescription label. Take this medicine with food if your stomach gets upset. Try to not lie down for at least 10 minutes after you take the medicine. Take your medicine at regular intervals. Do not take your medicine more often than directed. A special MedGuide will be given to you by the pharmacist with each prescription and refill. Be sure to read this information carefully each time. Talk to your creative services producer regarding the use of this medicine in children. Special care may be needed. What side effects may I notice from receiving this medicine? Side effects that you should report to your doctor or health child day care center worker as soon as possible: allergic reactions like skin rash, itching or hives, swelling of the face, lips, or tongue black or bloody stools, blood in the urine or in vomit breathing problems changes in vision chest pain general ill feeling or flu-like symptoms nausea or vomiting redness, blistering, peeling or loosening of the skin, including inside the mouth slurred speech or weakness on one side of the body stomach pain unexplained weight gain or swelling unusually weak or tired yellowing of eyes or skin Side effects that usually do not require medical attention (report to your doctor or health child day care center worker if they continue or are bothersome): constipation or diarrhea dizziness gas or heartburn stomach upset What may interact with this medicine? Do not take this medicine with any of the following medications: cidofovir ketorolac methotrexate pemetrexed This medicine may also interact with the following medications: alcohol aspirin diuretics lithium other drugs for inflammation like prednisone warfarin What if I miss a dose? If you miss a dose, take it as soon as you can. If it is almost time for your next dose, take only that dose. Do not take double or extra doses. Where should I keep my medicine? Keep out of the reach of children. Store at room temperature between 15 and 30 degrees C (59 and 86 degrees F). Keep container tightly closed. Throw away any unused medicine after the expiration date. What should I tell my health care provider before I take this medicine? They need to know if you have any of these conditions: asthma cigarette smoker drink more than 3 alcohol containing drinks a day heart disease or circulation problems such as heart failure or leg edema (fluid retention) high blood pressure kidney disease liver disease stomach bleeding or ulcers an unusual or allergic reaction to ibuprofen, aspirin, other NSAIDS, other medicines, foods, dyes, or preservatives or trying to get breast-feeding What should I watch for while using this medicine? Tell your doctor or healthcare professional if your symptoms do not start to get better or if they get worse. This medicine does not prevent heart attack or stroke. In fact, this medicine may increase the chance of a heart attack or stroke. The chance may increase with longer use of this medicine and in people who have heart disease. If you take aspirin to prevent heart attack or stroke, talk with your doctor or health child day care center worker. Do not take other medicines that contain aspirin, ibuprofen, or naproxen with this medicine. Side effects such as stomach upset, nausea, or ulcers may be more likely to occur. Many medicines available without a prescription should not be taken with this medicine. This medicine can cause ulcers and bleeding in the stomach and intestines at any time during treatment. Ulcers and bleeding can happen without warning symptoms and can cause . To reduce your risk, do not smoke cigarettes or drink alcohol while you are taking this medicine. You may get drowsy or dizzy. Do not drive, use machinery, or do anything that needs mental alertness until you know how this medicine affects you. Do not stand or sit up quickly, especially if you are an older patient. This reduces the risk of dizzy or fainting spells. This medicine can cause you to bleed more easily. Try to avoid damage to your teeth and gums when you brush or floss your teeth. You have been given the following additional information: Dental Cavity Dental Pain Diabetic Hyperglycemia Hypertension, Established Smoking Cessation Penicillin V Potassium Oral tablet Acetaminophen Oral tablet Ibuprofen Oral tablet Do not work for three days. Rest. (Electronically signed by Joshua Crain DO 07/13/2016 23:20)
--- NOTE | 2016-07-13 23:20 | ED MAR SUMMARY ---
..... Medication Administration Record [facility] [address] [place] [address] Patient: JOSE CRUZ Visit ID: [id number] 40y, M Weight: 86.1 kg Height/Length: 67 in BMI: 29.8 ALLERGIES: No Known Drug Allergy Given 18:59 07/13/2016 Karson Moyer R.N. Medication Administered: PEN-VEE K [PO] (PENICILLIN V POTASSIUM), Dose: 500 mg PO. Medication Ordered: Pen-Vee K PO 500 mg (NOW).
--- NOTE | 2016-07-13 23:20 | ED MED RECONCILIATION SUMMARY ---
Patient: JOSE CRUZ Medication Reconciliation Report [facility] VisitID: [id number] [place] [address] 40y, M Registration Date/Time: 07/13/2016 Weight: 86.1 kg Height/Length: 67 in. BMI: 29.8 ALLERGIES: No Known Drug Allergy The patient's Home Medications are listed below: NONE. The source(s) of the original Home Medication information: Not obtained. The following Medications were given to the patient in the Emergency Department: PEN-VEE K [PO] PO 500 mg, administered: 07/13/2016 6:59:00 PM The following Medications were prescribed to the patient: Acetaminophen (available over the counter): take according to label instructions. -- Joshua Crain DO Motrin (available over the counter): take according to label instructions. -- Joshua Crain DO Penicillin V 500mg: take 1 tab orally every 6 hours for 10 days. Dispense forty (40). No refill -- Joshua Crain DO Metformin 500 mg: take 1 orally every 12 hours. Dispense five (5). No refills. -- Joshua Crain DO
== END 2016-07-13 19:10 | disposition home or self-care (01) ==
LOC: ED SRH 18:09
DX: K02.9 Dental caries, unspecified (principal); E11.65 Type 2 diabetes mellitus with hyperglycemia; I10 Essential (primary) hypertension; F17.210 Nicotine dependence, cigarettes, uncomplicated; Z79.84 Long term (current) use of oral hypoglycemic drugs